=== PATIENT | male | born 1955 | race Caucasian/White ===

== ENCOUNTER 2025-02-07 16:22 | Emergency (ER) | payer OTHER ==
[~2025-02-07] VITALS: Ht 172.7 cm; Wt 95.3 kg
[2025-02-07 16:27] VITALS: O2SAT 95
[2025-02-07 16:35] VITALS: TEMP 36.8
[2025-02-07] MEDS: PANTOPRAZOLE SODIUM 40 MG/VIAL IV ONE (16:45)
[2025-02-07] MEDS: SODIUM CHLORIDE 0.9% 1,000 ML IV ONE ×2 (16:45→18:25)
[2025-02-07 17:26] LABS: HEMATOCRIT. 53.6 % (42.0-52.0); HEMOGLOBIN. 17.5 g/dL (14.0-18.0); MEAN PLATELET VOLUME 7.8 fl (7.4-10.4); PLATELET 267 x1000/uL (130-400); RED BLOOD CELL COUNT 5.58 mill/uL (4.7-6.1); RED CELL DISTRIBUTION WIDTH 13.3 % (11.6-14.6)
[2025-02-07 17:36] LABS: INR 1.3
[2025-02-07 17:40] LABS: CREATININE 2.4 mg/dL (0.6-1.3)
[2025-02-07 17:41] LABS: TROPONIN I HIGH SENSITIVITY 37 ng/L (3.0-53); UREA NITROGEN BLOOD 42 mg/dL (9-23)
[2025-02-07 17:42] LABS: ASPARTATE AMINOTRANSFERASE 10 IU/L (<34)
[2025-02-07 17:43] LABS: BILIRUBIN DIRECT 0.9 mg/dL (<=3.0); BILIRUBIN TOTAL 1.9 mg/dL (0.1-1.0); PROTEIN TOTAL 8.5 g/dL (6.0-8.3)
[2025-02-07] MEDS: CEFTRIAXONE 1GM/50ML 50 ML IV ONE (18:25)
[2025-02-07] MEDS ORDERED: HEPARIN 5000 UNITS/ML VIAL IV PRN ×2 (18:45)
[2025-02-07] MEDS ORDERED: HEPARIN 5000 UNITS/ML VIAL IV SCH (18:45)
[2025-02-07 18:47] LABS: LYMPHOCYTES % MANUAL 7.0 % (20.0-50.0); MONOCYTES % MANUAL 4.0 % (2.0-8.0); NEUTROPHILS % MANUAL 89.0 % (45.0-75.0); PLATELET ESTIMATE NORMAL
[2025-02-07] MEDS: HEPARIN 5000 UNITS/ML VIAL IV SCH (19:02)
[2025-02-07] MEDS: HEPARIN 25,000 UNITS PREMIX 250 ML IV PRN (19:18)
[2025-02-07] MEDS: DILTIAZEM HCL 5MG/ML 5ML VIAL IV ONE (20:42)
[2025-02-07] MEDS: IOHEXOL-350 100 ML BOTTLE ONE (20:47)
[2025-02-07 20:48] LABS: TROPONIN I HIGH SENSITIVITY 37 ng/L (3.0-53)
[2025-02-07] MEDS: DILTIAZEM HCL 60MG TABLET PO ONE (23:31)
[2025-02-07 23:33] VITALS: BP 137/71; PULSE 106; RESP 21; O2SAT 96
[2025-02-08] MEDS ORDERED: HEPARIN 5000 UNITS/ML VIAL IV PRN ×2 (02:00)
== END 2025-02-07 23:43 | disposition short-term general hospital (02) ==
LOC: ER 16:22 → CMPBEDREQ 02-08 08:45
DX: A41.9 Sepsis, unspecified organism (principal); K55.069 Acute infarction of intestine, part and extent unspecified; R65.20 Severe sepsis without septic shock; R06.02 Shortness of breath; I48.91 Unspecified atrial fibrillation; I10 Essential (primary) hypertension; E78.00 Pure hypercholesterolemia, unspecified; Z79.899 Other long term (current) drug therapy
CPT/HCPCS: 99291; 74174; 96365; 71275; 96375; 71045; 96367; 96361; 80076; 80048; 83880; 83605; 83690; 83735; 85025; 85610; 85730; 86850; 86900; 86901; 87040; 84484; 84145; 93005; 36415; Q9967; J0696; J3490; J1644; J2470; J7030